=== PATIENT | female | born 1950 | race Caucasian/White ===

== ENCOUNTER → 2016-05-14 | Outpatient (CLI) | payer OTHER ==
[~2016-05-14] MED LIST: FISH1000 PO; IBUP-232 PO; PROB1TAB PO; VITA20003 PO
[2016-05-14 12:48] LABS: AUTOMATED NEUTROPHIL # 3.2 TH/MM3 (1.8-7.7); BASOPHIL % 0.4 % (0.0-2.0); EOSINOPHIL # 0.1 TH/MM3 (0-0.4); EOSINOPHIL % 0.9 % (0.0-4.0); HEMATOCRIT 41.6 % (35.0-46.0); HEMO FLAGS DIFF FINAL; LYMPH % 36.6 % (9.0-44.0); LYMPHOCYTE # 2.1 TH/MM3 (1.0-4.8); MEAN CELL VOLUME 85.8 FL (80.0-100.0); MEAN CORPUSCULAR HEMOGLOBIN 28.6 PG (27.0-34.0); MEAN CORPUSCULAR HGB CONC 33.3 % (32.0-36.0); MONO % 5.1 % (0.0-8.0); PLATELET COUNT 228 TH/MM3 (150-450); RED BLOOD COUNT 4.85 MIL/MM3 (4.00-5.30); RED CELL DISTRIBUTION WIDTH 13.8 % (11.6-17.2); WHITE BLOOD COUNT 5.6 TH/MM3 (4.0-11.0)
[2016-05-14 13:07] LABS: BLOOD, URINE NEG (NEG); GLUCOSE,URINE NEG (NEG); KETONE, URINE NEG (NEG); MUCUS URINE FEW /lpf (OCC); NITRITE,URINE NEG (NEG); PH, URINE 5.5 (5.0-8.5); SQUAMOUS EPITHELIAL CELL URINE 1 /hpf (0-5); URINE COLOR LIGHT-YELLOW (YELLW/STRAW)
[2016-05-14 13:21] LABS: BICARBONATE 28.9 MEQ/L (21.0-32.0); POTASSIUM 4.5 MEQ/L (3.5-5.1)
--- NOTE | 2016-05-15 14:55 | EKG ---
Date Performed: 05/14/2016 Time Performed: 11:25:28 PTAGE: 65 years EKG: Sinus rhythm WITH SINUS ARRHYTHMIA Compared to prior tracing no significant change NORMAL ECG PREVIOUS TRACING 09/14/1992 @11.32.58 DOCTOR: Khadar Robin Interpretating Date/Time 05/15/2016 14:52:41
== END ==
LOC: CPRE 10:57
PROVIDERS: ATTEND Obstetrics & Gynecology
DX: N81.89 Other female genital prolapse (principal); I49.8 Other specified cardiac arrhythmias
CPT/HCPCS: 36415; 80048; 81001; 85025; 93005

== ENCOUNTER → 2016-05-17 | Day surgery (SDC) | payer OTHER ==
--- NOTE | 2016-05-14 13:18 | MH ---
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 SCHEDULED PROCEDURE Cystocele repair, enterocele repair, transobturator tape placement, possible rectocele repair. HISTORY OF PRESENT ILLNESS The patient is a very monica 65-year-old Spanish female para 3, status post distant hysterectomy, initially seen for pelvic pressure. She has occasional hot flashes off hormone therapy. She has abdominal and lower back pain . She has a known kidney stone in the renal pelvis. She went to the emergency room and confirmed the stone was still in the kidney. A urine C&S did show a UTI. She was given IV antibiotics. Evaluation revealed that she is not emptying her bladder completely because the bladder is extending for the vagina when standing. The urethra is kinking and she persistent urine in the bladder. She is restricting fluids at work and then she is peeing all night. She knows that she is not voiding completely during the day but has significant nocturia. PAST MEDICAL HISTORY Her history is significant for a hysterectomy in the distant past. She has had three children vaginally. One was born very premature and has very severe disabilities of prematurity. She is no longer staying at home. MEDICATIONS She is on no medications. ALLERGIES PENICILLIN. SOCIAL HISTORY She does not smoke, drink or use illicit drugs. She tries to exercise regularly. She is up-to-date on mammography and bone density scan. FAMILY HISTORY Noncontributory. PHYSICAL EXAMINATION VITAL SIGNS: Height 5 feet 3 inches, weight 155, BMI 27.5. Blood pressure 140/68. NECK: She has no thyroid enlargement. LUNGS: Clear to auscultation. HEART: Regular rate and rhythm. BREASTS: Without dominant mass, nipple discharge, skin retraction. ABDOMEN: Her abdomen is benign. PELVIC: The perineum shows a mildly gaping introitus. The bladder has a high cystocele with apical descent. Very positive Q-tip test and some postvoid residual. When she stands up the bladder does extend outside the perineum. There is a minimal rectocele. EXTREMITIES: Unremarkable. RECTAL: Guaiac negative. IMPRESSION Mixed incontinence with the majority being stress incontinence with overflow due to bladder procidentia and kinking of the urethra. Otherwise in good health. PLAN The plan is to proceed with transobturator tape, cystocele repair, enterocele repair, and if indicated rectocele repair. She is not sexually active at this time and wants this repair to be aggressive. She understands her biggest risk is not leaving her . She understands the restrictions and activity after the surgery is completed. We have gone over the risks, benefits and expectations in detail. She has signed consents and was scheduled for . Tonio Wheeler MD PPC/BT /11:47 AM /12:01 PM
[~2016-05-17] VITALS: Ht 154.9 cm; Wt 70.5 kg
[~2016-05-17] MED LIST changes: +BUPIVACAINE/EPINEPHRINE 0.25% 50 ML VIAL ONE; +CLINDAMYCIN 600 MG/NS 100 ML IV SCH; +DO NOT ADM ANY ANTICOAGULANT DRUGS XX PRN; +ESTROGENS CONJUGATED VAG CREA 15 APPL/30 GM TUBE ONE; +INSULIN HUMAN REGULAR 1,000 UNITS/10 ML VIAL SQ PRN; +LACTATED RINGER'S 1000 ML IV SCH; +LEVOFLOXACIN 500 MG PREMIX INJ 100 ML IV SCH; +METOPROLOL TARTRATE 25 MG TAB PO PRN; +SODIUM CHLOR 0.9% 250 ML INJ 250 ML ONE; +SODIUM CHLORID 0.9% 500 ML IV SCH; +SODIUM CHLORIDE 0.9% INJ 100 ML ONE
[2016-05-17 06:15] VITALS: BP 114/70; PULSE 68; RESP 18; TEMP 97.5; O2SAT 98
== END | disposition home or self-care (01) ==
LOC: HSDC 05:37
PROVIDERS: ATTEND Obstetrics & Gynecology
DX: N81.10 Cystocele, unspecified (principal); Z53.9 Procedure and treatment not carried out, unspecified reason
CPT/HCPCS: G0463; J7050; J7120; 99211

== ENCOUNTER 2016-05-22 06:30 | Observation (INO) | payer OTHER ==
[~2016-05-22] VITALS: Ht 157.5 cm; Wt 76.6 kg
[~2016-05-22 06:30] MED LIST changes: -BUPIVACAINE/EPINEPHRINE 0.25% 50 ML VIAL ONE; -CLINDAMYCIN 600 MG/NS 100 ML IV SCH; -DO NOT ADM ANY ANTICOAGULANT DRUGS XX PRN; -ESTROGENS CONJUGATED VAG CREA 15 APPL/30 GM TUBE ONE; -IBUP-232 PO; -INSULIN HUMAN REGULAR 1,000 UNITS/10 ML VIAL SQ PRN; -LACTATED RINGER'S 1000 ML IV SCH; -LEVOFLOXACIN 500 MG PREMIX INJ 100 ML IV SCH; -METOPROLOL TARTRATE 25 MG TAB PO PRN; -SODIUM CHLOR 0.9% 250 ML INJ 250 ML ONE; -SODIUM CHLORID 0.9% 500 ML IV SCH; -SODIUM CHLORIDE 0.9% INJ 100 ML ONE
[2016-05-22] MEDS ORDERED: SODIUM CHLORID 0.9% 500 ML IV SCH (07:15)
[2016-05-22] MEDS ORDERED: METOPROLOL TARTRATE 25 MG TAB PO PRN (07:15)
[2016-05-22] MEDS: LACTATED RINGER'S 1000 ML IV SCH ×2 (07:15→21:50)
[2016-05-22] MEDS ORDERED: INSULIN HUMAN REGULAR 1,000 UNITS/10 ML VIAL SQ PRN (07:15)
[2016-05-22] MEDS ORDERED: CLINDAMYCIN 600 MG/NS 100 ML IV SCH ×2 (07:15)
[2016-05-22] MEDS ORDERED: SODIUM CHLORIDE 0.9% INJ 100 ML ONE (07:22)
[2016-05-22] MEDS ORDERED: metroNIDAZOLE 500 MG INJ 100 ML IV ONE (07:22)
[2016-05-22 07:24] VITALS: BP 138/80; PULSE 62; RESP 18; TEMP 97.9; O2SAT 100
[2016-05-22] MEDS ORDERED: ceFAZolin INJ 1,000 MG VIAL ONE (07:26)
[2016-05-22] MEDS ORDERED: ESTROGENS CONJUGATED VAG CREA 15 APPL/30 GM TUBE ONE (07:26)
[2016-05-22] MEDS ORDERED: BUPIVACAINE HCL PF 0.25% 30 ML VIAL ONE (07:26)
[2016-05-22] MEDS ORDERED: LEVOFLOXACIN 500 MG PREMIX INJ 100 ML IV ONE (07:37)
[2016-05-22] MEDS ORDERED: DEXAMETHASONE SOD PHOS 4 MG/ML VIAL ONE (08:07)
[2016-05-22] MEDS ORDERED: ACETAMINOPHEN 1000 MG/100 ML VIAL IV ONE (08:07)
[2016-05-22] MEDS ORDERED: MIDAZOLAM HCL 2 MG/2 ML VIAL ONE (08:07)
[2016-05-22] MEDS ORDERED: BUPIVACAINE/EPINEPHRINE 0.5% 50 ML VIAL ONE (08:41)
[2016-05-22] MEDS ORDERED: PROPOFOL 200 MG/20 ML AMP IV ONE (08:53)
[2016-05-22] MEDS ORDERED: ePHEDrine/NS 25 MG/5 ML SYR IV ONE (08:53)
[2016-05-22] MEDS ORDERED: ONDANSETRON 40 MG/20 ML VIAL IV ONE (08:53)
[2016-05-22] MEDS ORDERED: LACTATED RINGER'S 1000 ML INJ 1,000 ML IV ONE (08:53)
[2016-05-22] MEDS ORDERED: NEOSTIGMINE 3 MG/3 ML SYR IV ONE (08:53)
--- NOTE | 2016-05-22 10:55 | PD.OP ---
Operative Report Date of Surgery: May 22, 2016 Preoperative Diagnosis: urinary retention, frequent UTI due to large cystourethrocele Postoperative Diagnosis: same, bladder mucosa biopsy Procedure: TOT (Solyx) anterior repair cystourethroscopy bladder biopsy Anesthesia: GET Surgeon: Selene Burns Wire Stitcher(s): Bhavik [id number] Operation and Findings: Selene Osorio MD May 22, 2016 10:55
[2016-05-22] MEDS ORDERED: fentaNYL CITRATE 250 MCG/5 ML AMP ONE (10:58)
[2016-05-22] MEDS ORDERED: DO NOT ADM ANY ANTICOAGULANT DRUGS XX PRN (11:00)
[2016-05-22] MEDS ORDERED: LORazepam 0.5 MG TAB PO PRN ×2 (11:00→11:30)
[2016-05-22] MEDS ORDERED: PILL SPLITTER OTHER PRN (11:00)
[2016-05-22] MEDS ORDERED: PROMETHAZINE HCL 25 MG TAB PO PRN (11:30)
[2016-05-22] MEDS ORDERED: ZOLPIDEM TARTRATE 5 MG TAB PO PRN (11:30)
[2016-05-22] MEDS: DOCUSATE SODIUM 100 MG CAP PO SCH ×2 (11:30→21:58)
[2016-05-22] MEDS ORDERED: oxyCODONE/ACETAMINOPHEN 5 MG/325 MG TAB PO PRN ×2 (11:30)
[2016-05-22] MEDS ORDERED: HYDROmorphone HCL PF 1 MG/ML VIAL IVP PRN (11:30)
[2016-05-22] MEDS ORDERED: SODIUM CHLORIDE 0.9% FLUSH 5 ML FLUSH FLUSH PRN (11:30)
[2016-05-22] MEDS ORDERED: ONDANSETRON HCL 4 MG/2 ML VIAL IVP PRN (11:30)
[2016-05-22] MEDS ORDERED: diphenhydrAMINE HCL 25 MG CAP PO PRN (11:30)
[2016-05-22] MEDS ORDERED: KETOROLAC TROMETHAMINE 30 MG/ML (IVP) VIAL IVP PRN (11:30)
[2016-05-22] MEDS: LACTATED RINGER'S 1000 ML INJ 1,000 ML IV SCH ×2 (11:40→21:49)
[2016-05-22] MEDS ORDERED: *morphine SULFATE 8 MG/ML PERIprocedure ONLY ONE (12:42)
[2016-05-22] MEDS ORDERED: *ONDANSETRON 4 MG VIAL PERIprocedural Use ONLY ONE (12:42)
[2016-05-22 14:10] LABS: CREATINE KINASE 51 U/L (26-192)
[2016-05-22 14:35] VITALS: BP 123/68; PULSE 78; RESP 20; TEMP 97.1; O2SAT 95
[2016-05-22 16:00] VITALS: BP 116/72; PULSE 88; RESP 18; TEMP 98; O2SAT 96
[2016-05-22 20:00] VITALS: BP 101/63; PULSE 75; RESP 16; TEMP 96.8; O2SAT 96
[2016-05-22] MEDS: SODIUM CHLORIDE 0.9% FLUSH 5 ML FLUSH FLUSH SCH (21:49)
[2016-05-23] VITALS: BP 102/59; PULSE 71; RESP 17; TEMP 96.9; O2SAT 96
[2016-05-23] MEDS: IBUPROFEN 600 MG TAB PO PRN ×2 (02:43→15:46)
[2016-05-23 04:00] VITALS: BP 95/58; PULSE 76; RESP 18; TEMP 96.3; O2SAT 98
[2016-05-23] MEDS: LACTATED RINGER'S 1000 ML INJ 1,000 ML IV SCH (04:48)
[2016-05-23 07:28] LABS: AUTOMATED NEUTROPHIL # 8.8 TH/MM3 (1.8-7.7); BASOPHIL % 0.2 % (0.0-2.0); EOSINOPHIL % 0.1 % (0.0-4.0); HEMATOCRIT 36.9 % (35.0-46.0); HEMO FLAGS DIFF FINAL; LYMPH % 23.5 % (9.0-44.0); LYMPHOCYTE # 2.9 TH/MM3 (1.0-4.8); MEAN CELL VOLUME 84.6 FL (80.0-100.0); MEAN CORPUSCULAR HEMOGLOBIN 27.8 PG (27.0-34.0); MEAN CORPUSCULAR HGB CONC 32.8 % (32.0-36.0); NEUT % 71.2 % (16.0-70.0); PLATELET COUNT 186 TH/MM3 (150-450); RED BLOOD COUNT 4.36 MIL/MM3 (4.00-5.30); RED CELL DISTRIBUTION WIDTH 13.5 % (11.6-17.2); WHITE BLOOD COUNT 12.3 TH/MM3 (4.0-11.0)
--- NOTE | 2016-05-23 07:45 | HHI.PR ---
Subjective Remarks Called yesterday at 5 pm with report that Jennifer had incurred episode of chest pain and SOB in PACU she had completed a full work up with ECG and tropinins and this was entirely reassuring this was determined to be an anxiety attack. Jennifer had come in , for procedure, had been prepped and IV placed before learning OR HVAC down and rescheduled to Saturday The anxiety and pressure of this delay likely precipitated this event which has been characterized and resolved. She was resting with no pain on 7 floor and reassured urine was clear and copious and perineum dry she will be evaluated this am after voiding trial and discharged. labs good so far Objective Vital Signs Vital Signs Date Time Temp Pulse Resp B/P Pulse Ox O2 Delivery O2 Flow Rate FiO2 05/23/16 04:00 96.3 76 18 95/58 98 05/23/16 00:00 96.9 71 17 102/59 96 05/22/16 20:00 96.8 75 16 101/63 96 05/22/16 16:00 98.0 88 18 116/72 96 05/22/16 14:35 97.1 78 20 123/68 95 05/22/16 14:15 97.6 96 16 134/74 98 Room Air 05/22/16 14:00 92 16 130/73 99 Room Air 05/22/16 13:45 87 16 129/71 97 Room Air 05/22/16 13:30 90 16 129/72 100 Room Air 05/22/16 13:15 90 16 129/71 100 Room Air 05/22/16 13:00 90 17 124/73 100 Room Air 05/22/16 12:45 72 12 107/71 98 Room Air 05/22/16 12:00 63 12 112/59 98 Room Air 05/22/16 11:45 61 12 111/56 100 Room Air 05/22/16 11:30 63 12 125/75 100 Room Air 05/22/16 11:28 Room Air 05/22/16 11:15 61 12 135/87 100 Nasal Cannula 2 05/22/16 11:00 71 12 136/80 100 Nasal Cannula 2 05/22/16 10:50 97.4 78 12 144/81 100 Nasal Cannula 2 I/O 05/22/16 05/22/16 05/22/16 05/23/16 05/23/1617 07:00 15:00 23:00 07:00 15:00 23:00 Intake Total 1886 ml 1830 ml 1470 ml Output Total 325 ml 1550 ml 1150 ml Balance 1561 ml 280 ml 320 ml Intake Oral 100 ml 840 ml 480 ml IV Total 386 ml 990 ml 990 ml Other 1400 ml Output Urine Total 175 ml 1550 ml 1150 ml Estimated Blood Loss 150 ml Result Diagram: 05/23/16 0650 Objective Remarks Chest is clear, regular rate and rhythm. Abdomen is soft and non-distended. Incision is clean and dry. Ext no CCE. A/P Assessment and Plan Post Op Day 1 Doing well Home today and return to office in two weeks. Selene Burns MD May 23, 2016 07:45
[2016-05-23 08:05] LABS: BICARBONATE 26.4 MEQ/L (21.0-32.0)
[2016-05-23 08:14] VITALS: BP 104/62; PULSE 56; RESP 18; TEMP 97; O2SAT 99
[2016-05-23] MEDS: SODIUM CHLORIDE 0.9% FLUSH 5 ML FLUSH FLUSH SCH (09:00)
--- NOTE | 2016-05-23 11:06 | EKG ---
Date Performed: 05/22/2016 Time Performed: 13:06:05 PTAGE: 65 years EKG: Sinus rhythm WITH FIRST DEGREE AV BLOCK NONSPECIFIC T-WAVE ABNORMALITY ABNORMAL ECG PREVIOUS TRACING : 05/14/2016 11.25 DOCTOR: Dariusz Dubois Interpretating Date/Time 05/23/2016 11:06:06
[2016-05-23] MEDS: DOCUSATE SODIUM 100 MG CAP PO SCH (11:43)
[2016-05-23 12:00] VITALS: BP 102/69; PULSE 72; RESP 18; TEMP 96; O2SAT 97
--- NOTE | 2016-05-23 15:19 | HHI.PR ---
Subjective Remarks Doing well, pain is well controlled, eating well. voided well post with no retention no bleeding ready for discharge Objective Vital Signs Vital Signs Date Time Temp Pulse Resp B/P Pulse Ox O2 Delivery O2 Flow Rate FiO2 05/23/16 12:00 96.0 72 18 102/69 97 05/23/16 08:14 97.0 56 18 104/62 99 05/23/16 04:00 96.3 76 18 95/58 98 05/23/16 00:00 96.9 71 17 102/59 96 05/22/16 20:00 96.8 75 16 101/63 96 05/22/16 16:00 98.0 88 18 116/72 96 I/O 05/22/16 05/22/16 05/22/16 05/23/16 05/23/16 05/23/16 07:00 15:00 23:00 07:00 15:00 23:00 Intake Total 1886 ml 1830 ml 1470 ml 960 ml Output Total 325 ml 1550 ml 1150 ml 250 ml Balance 1561 ml 280 ml 320 ml 710 ml Intake Oral 100 ml 840 ml 480 ml 960 ml IV Total 386 ml 990 ml 990 ml Other 1400 ml Output Urine Total 175 ml 1550 ml 1150 ml 250 ml Estimated Blood Loss 150 ml # Voids 1 Result Diagram: 05/23/16 0650 05/23/16 0650 Objective Remarks Chest is clear, regular rate and rhythm. Abdomen is soft and non-distended. Incision is clean and dry. Ext no CCE. A/P Assessment and Plan Post Op Day 1 Doing well Home today and return to office in two weeks. Selene Burns MD May 23, 2016 15:19
[2016-05-23] MEDS ORDERED: IBUP-232 PO (15:21)
--- NOTE | 2016-05-23 15:21 | HHI.DCPOC ---
Discharge Care Plan Report Symptoms to Your Doctor -Temperate above 100.5 degrees -Redness, of incision or excessive or foul smelling drainage -Unusual pain or calf pain -Increased vaginal bleeding -Painful or difficulty urinating -Feelings of extreme sadness or anxiety after 2 weeks Goals to Promote Your Health * To prevent worsening of your condition and complications * To maintain your health at the optimal level Directions to Meet Your Goals Take your medications as prescribed Follow your dietary instruction Follow activity as directed Ensure plenty of rest for recovery Drink fluids for hydration Keep your appointments as scheduled Take your immunizations and boosters as scheduled If your symptoms worsen call your PCP, if no PCP go to Urgent Care Center or Emergency Room Smoking is Dangerous to Your Health. Avoid second hand smoke Call the 24-hour crisis hotline for domestic abuse at Selene Burns MD May 23, 2016 15:21
[2016-05-23 16:00] VITALS: BP 110/70; PULSE 88; RESP 18; TEMP 97; O2SAT 96
--- NOTE | 2016-05-24 09:02 | MP ---
cc: SELENE WHEELER DATE OF SURGERY 05/22/2016 PREOPERATIVE DIAGNOSIS Bladder procidentia, urinary retention, stress incontinence and overflow. POSTOPERATIVE DIAGNOSIS Bladder procidentia, urinary retention, stress incontinence and overflow, area of fluffy uro endothelium removed from the bladder. PROCEDURE Transobturator tape placement, aggressive cystocele repair, enterocele repair, cystourethroscopy and biopsy of the bladder. 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 It has a chronic residual. There is a mild rectocele, a small enterocele, no paravaginal defect. The bladder was dissected off the vaginal mucosa and transobturator tape placed without difficulty. Prior to completing the cystocele repair, cystoscopy was performed. There was some concern about some fluffy, not particular vascular, but exuberant tissue in the lower portion of the bladder mostly build up near the right ureteral orifice. This was biopsied and sent to pathology. Otherwise, there was no iatrogenic injury or other obvious intrinsic pathology. A sling was in the appropriate place. The rest of the cystocele repair and enterocele were performed without difficulty and bleeding was negligible. 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 Sponge, instrument and needle counts were correct. Estimated blood loss was negligible and she went to the recovery room stable. PROCEDURE The patient was identified as Jennifer Betancourt, her permit was reviewed in the holding area. She was exceptionally anxious due to the delay in her procedure. She was taken to the operating room, placed under general anesthesia, prepped and draped in the usual sterile fashion in the dorsal lithotomy position. A time-out was performed. She had received clindamycin and Flagyl and Levaquin before the procedure IV. A Montero catheter was placed after she was prepped and draped and examined. An Allis was used to grasp 1 cm below the urethra and then a second was mid cystocele. The area was infiltrated liberally with Marcaine with epi and then the Bovie was used to incise the vaginal mucosa and the bladder was dissected off the blastic vaginal mucosa to the lateral sides on either side and underneath the pubic ramus. This was a large bulky bladder. It was emptied and then plicated and elevated to above the urogenital tract diaphragm and the plication stitches of chromic was used to try and decrease the volume and keep it from interfering with the cystocele mattress plication. Then the Solex was removed from the kit. The midline was marked and was used to crespo the urogenital diaphragm on the right and then on the left leg against the urethra, but not causing any tension. There was a minimal amount of bleeding from the left. At this point, cystoscopy was performed with a 70 degree scope and the ureteral flow was seen from both orifices and there was no tape or suture in the bladder. However, a fluffy exuberance of tissue near the left ureteral orifice was noted and biopsied. The Montero catheter was then replaced and then the mattress sutures were used to bring together the thin fascia between the bladder and what would be the vaginal mucosa. The mucosa was then trimmed and closed with interrupted's. There was a entrance into the peritoneal cavity at the top of this which was pursestring and closed. No packing was needed as there was no bleeding. She was placed in dorsal supine position, awoken and taken to recovery in stable condition. MD LENNY Phillips/NICK /8:41 AM /8:46 AM
== END 2016-05-23 17:20 | disposition home or self-care (01) ==
LOC: HSDC 06:30 → HSDI 10:53 → HOCB 14:35
PROVIDERS: ADMIT Obstetrics & Gynecology; ATTEND Obstetrics & Gynecology
DX: N39.3 Stress incontinence (female) (male) (principal); N81.3 Complete uterovaginal prolapse; R33.9 Retention of urine, unspecified; N81.6 Rectocele; Z87.440 Personal history of urinary (tract) infections
CPT/HCPCS: 80048; 82550; 84484; 85025; 88305; 93005; 94150; C1771; G0378; J0131; J0690; J1100; J1885; J1956; J2250; J2270; J2405; J2710; J3010; J7120